=== PATIENT | male | born 1995 | race Caucasian/White ===

== ENCOUNTER 2018-10-26 15:17 | Emergency (ER) | payer SELFPAY ==
[~2018-10-26] VITALS: Ht 172.7 cm; Wt 79.0 kg
--- NOTE | 2018-10-26 15:21 | NUR ---
23 Y/O MALE BIB AMBULANCE WITH C/O SYNCOPE. PER REPORT PT SLUMPED OVER THE ARM OF A RECLINER AND WAS ASSISTED TO A SUPINE POSITION. PT WAS HYPERVENTILATING. PT HAS RECORRECTED BY SELF. " I STARTED FEELING WEIRD. MY HAND WAS SHAKING AND I HAD SOME BAD CHEST PAIN. BECAUSE OF THE PAIN I SLUMPED OVER AND THEY HELPED MY TO THE FLOOR. I DIDN'T LOSE CONSCIOUSNESS OR PASS OUT." NO C/O N/V/D, TRAUMA, SOB. 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 PER REPORT PT HAS SOME NEW LIFE STRESSORS RIGHT NOW.
[2018-10-26] MEDS ORDERED: ASPIRIN 81 MG TABLET CHEW ONE (15:53)
[2018-10-26] MEDS ORDERED: SODIUM CHLORIDE 0.9% 1,000ML IVBOLUS ONE (16:00)
[2018-10-26] MEDS ORDERED: SODIUM CHLORIDE FLUSH 10ML SYR IVF ONE (16:00)
[2018-10-26] MEDS ORDERED: ASPIRIN 81 MG TABLET CHEW PO ONE (16:00)
[2018-10-26 16:06] LABS: BASOPHILS # (AUTO) 0.03 x10^3/uL (0-0.1); BASOPHILS % (AUTO) 0 % (0-1); EOSINOPHILS # (AUTO) 0.03 x10^3/uL (0-0.4); EOSINOPHILS % (AUTO) 0 % (1-7); LYMPHOCYTES # (AUTO) 2.55 x10^3/uL (1-3.4); LYMPHOCYTES % (AUTO) 29 % (22-44); MD NO; MEAN CORPUSCULAR HEMOGLOBIN 29.1 pg (27.5-34.5); MEAN CORPUSCULAR HGB CONC 33.9 g/dL (33.2-36.2); MEAN PLATELET VOLUME 8.5 fL (7.4-10.4); MONOCYTES # (AUTO) 0.44 x10^3/uL (0.2-0.8); MONOCYTES % (AUTO) 5 % (2-9); NEUTROPHILS # (AUTO) 5.86 x10^3/uL (1.8-6.8); NEUTROPHILS % (AUTO) 66 % (42-75); PLATELET COUNT 254 x10^3/uL (130-400); RED BLOOD COUNT 5.98 x10^6/uL (4.38-5.82); RED CELL DISTRIBUTION WIDTH 12.5 % (9.4-14.8)
[2018-10-26 16:17] LABS: ALBUMIN 4.9 g/dL (3.4-5.0); ANION GAP 7 mmol/L (5-15); CALCIUM 9.8 mg/dL (8.5-10.1); CHLORIDE 110 mmol/L (98-107)
[2018-10-26 16:21] LABS: TROPONIN I < 0.015 ng/mL (0.000-0.045)
--- NOTE | 2018-10-26 16:59 | NUR ---
PT RESTING ON GURNEY. NO ACUTE DISTRESS NOTED. AUNT BEDSIDE. NO NEEDS REQUESTED AT THIS TIME.
--- NOTE | 2018-10-26 17:29 | NUR ---
PT GIVEN URINAL. NO ACUTE DISTRESS NOTED. NO NEEDS REQUESTED AT THIS TIME.
--- NOTE | 2018-10-26 17:53 | NUR ---
PT RESTING ON GURNEY. NO ACUTE DISTRESS NOTED. NO NEEDS REQUESTED AT THIS TIME.
--- NOTE | 2018-10-26 18:25 | NUR ---
SPOKE WITH DIET OFFICE. WILL BRING TRAY.
--- NOTE | 2018-10-26 18:26 | NUR ---
LATE ENTRY FOR 1814 PT EDUCATED REGARDING DIET TRAY. PT TALKING ON CELL PHONE ON [facility]. NO ACUTE DISTRESS NOTED
--- NOTE | 2018-10-26 18:33 | NUR ---
DIET TRAY DELIVERED.
[2018-10-26 18:59] VITALS: BP 12/74
== END 2018-10-26 19:08 | disposition home or self-care (01) ==
LOC: ED 19:02
DX: R55 Syncope and collapse (principal); F41.1 Generalized anxiety disorder; R06.4 Hyperventilation; E16.2 Hypoglycemia, unspecified
CPT/HCPCS: 36415; 71045; 80048; 82040; 83880; 84484; 85025; 93005; 96360; 99284; J7030